=== PATIENT | male | born 1935 | race African-American/Black ===

== ENCOUNTER 2019-07-21 10:22 | Emergency (ER) | payer MEDICARE ==
[2019-07-21 11:28] LABS: #Eosinphils 0.3 thou/uL (0.0-0.7); #Lymphocytes 1.1 thou/uL (1.20-3.40); #Monocytes 0.4 thou/uL (0.11-0.59); #Neutrophils 2.8 thou/uL (1.40-6.50); %Basophils 0.2 % (0.0-1.0); %Eosinophils 6.6 % (0.0-10.0); %Lymphocytes 23.9 % (21.0-51.0); %Monocytes 9.1 % (0.0-10.0); %Neutrophils 60.2 % (42.0-75.0); Hemoglobin 14.2 g/dL (14.0-18.0); Mean Corpuscular HGB CONC 33.7 g/dL (32.0-36.0); Mean Corpuscular Hemoglobin 34.8 pg (27.0-31.0); Platelet Count 229 thou/uL (130-400); RBC Distribution Width 12.7 % (11.5-14.5); Red Blood Cell (RBC) Count 4.08 mill/uL (4.70-6.10); White Blood Cell (WBC) Count 4.6 thou/uL (4.8-10.8)
--- NOTE | 2019-07-21 11:52 | RAD ---
RADIOGRAPH RIGHT ANKLE 3 VIEWS: DATE: 07/21/2019 HISTORY: 84-year-old male with erythema, swelling, and purulent drainage from left ankle FINDINGS: Ankle mortise is congruent. There is no evidence of fracture. There is no subluxation or dislocation. There is diffuse soft tissue edema. No high-grade DJD. Ankle mortise joint space is maintained without obvious erosion. No obvious destructive osseous lesion. Talar dome is maintained. IMPRESSION: 1. No fracture. 2. Diffuse soft tissue edema.
[2019-07-21 12:03] LABS: ALT (SGPT) 12 U/L (8-55); AST (SGOT) 23 U/L (5-34); Albumin 3.8 g/dL (3.4-4.8); Alkaline Phosphatase 85 U/L (40-110); Anion Gap 11 mmol/L (10-20); BUN (Urea Nitrogen) 11 mg/dL (8.4-25.7); Bilirubin, Total 0.7 mg/dL (0.2-1.2); Calc. Creatinine Clearance 0 mL/min (70-130); Calcium 9.3 mg/dL (7.8-10.44); Carbon Dioxide 27 mmol/L (23-31); Chloride 104 mmol/L (98-107); Estimated GFR-MDRD 71; Globulin 3.9 g/dL (2.4-3.5); Glucose 113 mg/dL (83-110); Potassium 3.3 mmol/L (3.5-5.1); Protein, Total 7.7 g/dL (5.8-8.1); Sodium 139 mmol/L (136-145)
== END 2019-07-21 13:12 | disposition home or self-care (01) ==
LOC: ERS 10:22
DX: L03.116 Cellulitis of left lower limb (principal); E78.5 Hyperlipidemia, unspecified; E78.00 Pure hypercholesterolemia, unspecified; I10 Essential (primary) hypertension; F17.210 Nicotine dependence, cigarettes, uncomplicated; Z79.899 Other long term (current) drug therapy; Z79.82 Long term (current) use of aspirin
CPT/HCPCS: 36415; 80053; 85025

== ENCOUNTER 2019-08-01 13:30 | Outpatient (CLI) | payer MEDICARE ==
--- NOTE | 2019-08-04 16:57 | OP ---
DATE OF PROCEDURE: 08/01/2019 PROCEDURE PERFORMED: Arterial ultrasound. FINDINGS: Bilateral segmental ultrasound examination of the legs were performed. On the right, common femoral, popliteal, posterior tibial, and dorsalis pedis waveforms were all triphasic with good peaks. On the left, common femoral, popliteal, posterior tibial, and dorsalis pedis waveforms are all triphasic with good peaks. Ankle-brachial index on the right is 1.19 and on the left is 1.11. ASSESSMENT: Normal arterial lower extremity Doppler examination. Job ID: [id number]
== END 2019-08-01 13:31 | disposition home or self-care (01) ==
LOC: ULT 13:30
PROVIDERS: ATTEND Specialist
DX: I73.9 Peripheral vascular disease, unspecified (principal)
CPT/HCPCS: 93922

== ENCOUNTER 2019-11-10 15:58 | Inpatient (IN) | payer MEDICARE, OTHER ==
[~2019-11-10 15:58] MED LIST: Heparin 1,000 UNITS/ML VIAL ONE
[2019-11-10] MEDS ORDERED: Doxycycline 100 MG CAP PO SCH (16:45)
[2019-11-10 17:15] LABS: Hemoglobin 13.3 g/dL (14.0-18.0); Mean Corpuscular HGB CONC 31.6 g/dL (32.0-36.0); Mean Corpuscular Hemoglobin 33.3 pg (27.0-31.0); Mean Platelet Volume 9.1 fL (7.4-10.4); Platelet Count 184 thou/uL (130-400); RBC Distribution Width 12.5 % (11.5-14.5)
[2019-11-10] MEDS ORDERED: cefTRIAXone\\ROCEPHIN 2 GM VIAL ONE (17:28)
--- NOTE | 2019-11-10 17:30 | RAD ---
XR Chest 1 View Portable HISTORY: Infection. Venous stasis wounds on left lower extremity COMPARISON: 04/08/2012 FINDINGS: The heart size is normal. The lungs are without lobar consolidation, pneumothorax or pleura l effusions. Minimal atelectatic changes are seen at the left lung base.. IMPRESSION: No radiographic evidence of acute cardiopulmonary process.
[2019-11-10 17:32] LABS: ALT (SGPT) 14 U/L (8-55); AST (SGOT) 19 U/L (5-34); Albumin 3.8 g/dL (3.4-4.8); Alkaline Phosphatase 98 U/L (40-110); Anion Gap 10 mmol/L (10-20); BUN (Urea Nitrogen) 12 mg/dL (8.4-25.7); Bilirubin, Total 0.5 mg/dL (0.2-1.2); Calc. Creatinine Clearance 0 mL/min (70-130); Carbon Dioxide 29 mmol/L (23-31); Chloride 105 mmol/L (98-107); Estimated GFR-MDRD 84; Globulin 3.7 g/dL (2.4-3.5); Glucose 109 mg/dL (83-110); Potassium 3.4 mmol/L (3.5-5.1); Protein, Total 7.5 g/dL (5.8-8.1); Sodium 141 mmol/L (136-145)
[2019-11-10 17:38] LABS: Eosinophils 5 % (0-10); Large Platelets SLIGHT; Lymphocytes 23 % (21-51); MDiff Complete? YES; Macrocytosis SLIGHT = 6-15 cells (100X) (0-5/hpf); Monocytes 10 % (0-10); Neutrophil 56 % (42-75); Platelet Morphology Comment Appears Adequate; Reactive Lymphocytes 6 % (0-10); Stomatocytes SLIGHT = 2-5 cells (100X) (0-1/hpf)
[2019-11-10] MEDS ORDERED: Vancomycin HCl 1.25 GM in Sodium Chloride 0.9% 250 ML 250 ML IVPB SCH (17:45)
--- NOTE | 2019-11-10 18:00 | ULT ---
EXAM: Bilateral lower extremity venous Doppler US HISTORY: bilateral lower extremity edema and redness FINDINGS: Grayscale, color-flow, Doppler evaluation, spectral analysis of the bilateral lower extremities venou s structures is performed with 2-D imaging. The bilateral common femoral, superficial femoral, popliteal, posterior tibial, proximal greater saphenous and profunda femoral veins are imaged. Exam is limited due to interference artifact. There is normal luminal compressibility, flow, and augmentation in the visualized deep venous structu res of the bilateral lower extremities. IMPRESSION: No definite evidence of a deep vein thrombosis in either lower extremity.
[2019-11-10 18:13] LABS: Bilirubin Negative (Negative); Blood, Urine Negative (Negative); Clarity Clear (Clear); Glucose, Urine (Dipstick) Normal (Negative); Ketone, Urine Negative (Negative); Leukocyte Negative Leu/uL (Negative); Nitrite Negative (Negative); Protein, Urine (Dipstick) Negative (Neg-Trace); Specific Gravity, Urine 1.015 (1.002-1.036); Urobilinogen Normal mg/dL (Less than 2); pH, Urine 6.5 (5.0-9.0)
--- NOTE | 2019-11-10 18:23 | RAD ---
LEFT LEG 2 VIEWS: HISTORY: Cellulitis FINDINGS: There are postop changes of total knee arthroplasty in good position and alignment. The left tibia an d fibula are otherwise intact. No bony destruction, or periosteal reaction is seen. IMPRESSION: No evidence of osteomyelitis in the left leg
[2019-11-10 22:33] VITALS: BMI 34.2
[2019-11-11] MEDS ORDERED: Ondansetron PF 4 MG/2 ML Vial IVP PRN (08:24)
[2019-11-11] MEDS ORDERED: Acetaminophen 325 MG TAB PO PRN (08:24)
[2019-11-11] MEDS ORDERED: Adacel (T-DAP) 0.5 ML SYRINGE IM ONE (08:30)
[2019-11-11] MEDS: Aspirin Chewable 81 MG TAB PO SCH (08:54)
[2019-11-11] MEDS: Potassium Chloride 10 MEQ TAB PO SCH ×2 (08:55→19:52)
[2019-11-11] MEDS: Metoprolol Tartrate 50 MG TAB PO SCH ×2 (08:56→19:52)
[2019-11-11] MEDS: Cefepime 2 GM in Sodium Chloride 0.9% 100 ML IVPB SCH ×2 (08:56→19:56)
[2019-11-11] MEDS: Nicotine 21 MG PATCH TOP SCH (08:56)
[2019-11-11] MEDS: Hydrochlorothiazide 25 MG TAB PO SCH (08:56)
[2019-11-11] MEDS ORDERED: cloNIDine 0.1 MG TAB PO SCH (09:00)
[2019-11-11] MEDS ORDERED: Lisinopril 20 MG TAB PO SCH (09:00)
[2019-11-11] MEDS: Vancomycin 1.5 GRAM/300 ML BAG 1.5 GM in Premix Bag 1 BAG IVPB SCH ×2 (12:02→21:45)
--- NOTE | 2019-11-11 13:04 | HP ---
CHIEF COMPLAINT ON ADMISSION: Cellulitis of the lower extremities. HISTORY OF PRESENT ILLNESS: The patient is an 84-year-old male, who was receiving home health care for venous insufficiency in both his legs and chronic venous stasis wounds. It was noted that there was increased warmth and redness on the day of admission. Dr. Lorenzo was contacted by [facility] and Dr. Lorenzo recommended ER evaluation to see if cellulitis was present. It was noted that there was swelling in the ER, the right over the left. However, both lower extremities were hot to touch, mildly tender. The patient denied any fever, shortness of breath, or Homans' sign. However, he clinically had infection in the skin of both legs and since he had already been receiving home health care, he had failed outpatient treatment. He has had cellulitis before in the lower extremities. PAST MEDICAL HISTORY: Significant for peripheral vascular disease, dyslipidemia, hypertension, overactive bladder, and hypokalemia. PAST SURGICAL HISTORY: Includes bilateral knee surgeries. PSYCHIATRIC HISTORY: Negative. SOCIAL HISTORY: He drinks rarely socially. Denies any illicit drug use. Uses tobacco daily and has for 30 years, smoking 1-1/2 packs per day. REVIEW OF SYSTEMS: CONSTITUTIONAL: Negative for fever, malaise, nausea, vomiting, or diarrhea. HEENT: Negative for drainage or pain in eyes, ears, nose, or throat. CHEST: Denies shortness of breath or cough. CARDIOVASCULAR: Denies palpitations or chest pain. GASTROINTESTINAL: Denies nausea, vomiting, or diarrhea. GENITOURINARY: Denies dysuria, blood in urine or stool or frequency or dysuria. MUSCULOSKELETAL: Positive for chronic lower extremity venous stasis changes with ulcerations. No hair growth and most recently swelling, heat, and tenderness. SKIN: Shows atrophic changes of long-term chronic venous stasis in the lower extremities. NEUROLOGIC: Cranial nerves are intact. Unable to test gait and cerebellar function at this time. Sensory exam is grossly intact. Mental status is at baseline. ALLERGIES: THE PATIENT HAS NO KNOWN DRUG ALLERGIES. MEDICATIONS ON ADMISSION: Include; 1. Metoprolol tartrate 50 mg b.i.d. 2. Atorvastatin 10 mg at bedtime. 3. Myrbetriq 50 mg daily. 4. Lisinopril/hydrochlorothiazide 20/25 b.i.d. 5. Aspirin 81 mg daily. 6. Trental 400 mg t.i.d. 7. Clonidine 0.2 mg once a day. PHYSICAL EXAMINATION: VITAL SIGNS: At the time of admission, blood pressure is 175/74, temperature 97.8, pulse is 89, respirations 20, and O2 saturation 97% on room air. He weighs 212 pounds. GENERAL: This is a well-developed, well-nourished, male, alert, oriented, cooperative. HEENT: Normocephalic, atraumatic. Pupils with arcus senilis bilaterally, equal, round, and reactive to light, diminished reactivity at 2 mm each. TMs, nares, and pharynx are clear. Membranes moist. NECK: Supple. No masses. No bruits. CHEST: Clear to auscultation. HEART: Regular rate and rhythm without murmur. ABDOMEN: Soft, nontender without organomegaly. GENITOURINARY: Deferred. EXTREMITIES: Bilaterally from the knees down, there is erythema, heat, redness, swelling, mildly tender; it is more anterior area of the anterior tibialis and ran into the calf, peripherally to the ankle and foot it is less. SKIN: Shows atrophic changes from long-term venous stasis disease. Currently, no oozing lesions. NEUROLOGIC: Cranial nerves are intact. Unable to test gait and cerebellar function at this time. Sensory exam is grossly intact. LABORATORY DATA: Lab work thus far shows sodium 141, potassium 3.4, chloride 105, CO2 of 29, BUN 12, creatinine 1.03 with a GFR of 84, and glucose 109. Liver functions unremarkable. Troponins negative. BNP 35. WBCs 4, hemoglobin 13.3, hematocrit 42, and platelets of 184. Urinalysis is completely clear. ASSESSMENT: 1. Cellulitis of the lower extremities. 2. Chronic venous stasis disease. 3. Peripheral vascular disease, long history. 4. Hypertension. 5. Dyslipidemia. PLAN: Continue IV antibiotics. Serially re-evaluate the patient. Continue routine medications. Job ID: [id number] [facility]
[2019-11-11 15:03] LABS: SARS-CoV-2 MS2 Positive; SARS-CoV-2 N Gene Negative; SARS-CoV-2 S Gene Negative; SARS-CoV-2 by NAA Not Detected (NotDetected); SARS-CoV-2 orf1ab Negative
[2019-11-11] MEDS: cloNIDine 0.2 MG TAB PO SCH (19:50)
[2019-11-11] MEDS: Lisinopril 20 MG TAB PO SCH (19:51)
[2019-11-11] MEDS: Atorvastatin Calcium 10 MG TAB PO SCH (19:52)
[2019-11-12 06:12] LABS: #Eosinphils 0.3 thou/uL (0.0-0.7); #Monocytes 0.5 thou/uL (0.11-0.59); #Neutrophils 2.9 thou/uL (1.40-6.50); %Basophils 0.3 % (0.0-1.0); %Eosinophils 6.7 % (0.0-10.0); %Lymphocytes 21.3 % (21.0-51.0); %Monocytes 9.7 % (0.0-10.0); %Neutrophils 62.1 % (42.0-75.0); Hemoglobin 13.2 g/dL (14.0-18.0); Mean Corpuscular HGB CONC 32.5 g/dL (32.0-36.0); Mean Corpuscular Hemoglobin 33.7 pg (27.0-31.0); Mean Platelet Volume 9.2 fL (7.4-10.4); Platelet Count 252 thou/uL (130-400); RBC Distribution Width 12.6 % (11.5-14.5); Red Blood Cell (RBC) Count 3.91 mill/uL (4.70-6.10); White Blood Cell (WBC) Count 4.7 thou/uL (4.8-10.8)
[2019-11-12 06:38] LABS: Anion Gap 12 mmol/L (10-20); BUN (Urea Nitrogen) 9 mg/dL (8.4-25.7); Calc. Creatinine Clearance 85 mL/min (70-130); Calcium 8.8 mg/dL (7.8-10.44); Carbon Dioxide 27 mmol/L (23-31); Cardiac Risk 2.5 (Less than 4.5); Chloride 105 mmol/L (98-107); Cholesterol 134 mg/dl (< 200 Desired); Estimated GFR-MDRD Greater than 90; Glucose 105 mg/dL (83-110); HDL Cholesterol 54 mg/dL (>60 Neg Risk); LDL Cholesterol, Calculated 67 mg/dL; Potassium 3.2 mmol/L (3.5-5.1); Sodium 141 mmol/L (136-145); Triglycerides 63 mg/dL (Less than 150)
[2019-11-12] MEDS: Cefepime 2 GM in Sodium Chloride 0.9% 100 ML IVPB SCH ×2 (08:04→20:31)
[2019-11-12] MEDS: Potassium Chloride 10 MEQ TAB PO SCH (08:05)
[2019-11-12] MEDS: Aspirin Chewable 81 MG TAB PO SCH (08:05)
[2019-11-12] MEDS: Lisinopril 20 MG TAB PO SCH ×2 (08:05→20:30)
[2019-11-12] MEDS: cloNIDine 0.2 MG TAB PO SCH ×2 (08:05→20:30)
[2019-11-12] MEDS: Metoprolol Tartrate 50 MG TAB PO SCH ×2 (08:05→20:39)
[2019-11-12] MEDS: Hydrochlorothiazide 25 MG TAB PO SCH (08:05)
[2019-11-12] MEDS: Nicotine 21 MG PATCH TOP SCH (08:12)
[2019-11-12 09:23] LABS: Vancomycin, Trough 17.5 ug/mL
[2019-11-12] MEDS: Vancomycin 1.5 GRAM/300 ML BAG 1.5 GM in Premix Bag 1 BAG IVPB SCH ×2 (09:54→21:30)
[2019-11-12] MEDS ORDERED: Potassium Chloride 20 MEQ TAB PO SCH (10:00)
[2019-11-12] MEDS: Atorvastatin Calcium 10 MG TAB PO SCH (20:30)
[2019-11-12] MEDS: Potassium Chloride 20 MEQ TAB PO SCH (20:31)
[2019-11-13 05:52] LABS: #Eosinphils 0.3 thou/uL (0.0-0.7); #Monocytes 0.6 thou/uL (0.11-0.59); #Neutrophils 2.4 thou/uL (1.40-6.50); %Basophils 0.6 % (0.0-1.0); %Eosinophils 8.2 % (0.0-10.0); %Lymphocytes 22.9 % (21.0-51.0); %Monocytes 12.9 % (0.0-10.0); %Neutrophils 55.4 % (42.0-75.0); Hemoglobin 12.5 g/dL (14.0-18.0); Mean Corpuscular HGB CONC 31.6 g/dL (32.0-36.0); Mean Corpuscular Hemoglobin 32.9 pg (27.0-31.0); Mean Platelet Volume 9.2 fL (7.4-10.4); Platelet Count 239 thou/uL (130-400); RBC Distribution Width 12.5 % (11.5-14.5); Red Blood Cell (RBC) Count 3.81 mill/uL (4.70-6.10); White Blood Cell (WBC) Count 4.2 thou/uL (4.8-10.8)
[2019-11-13 06:15] LABS: Anion Gap 12 mmol/L (10-20); BUN (Urea Nitrogen) 10 mg/dL (8.4-25.7); Calc. Creatinine Clearance 80 mL/min (70-130); Calcium 8.9 mg/dL (7.8-10.44); Carbon Dioxide 24 mmol/L (23-31); Chloride 107 mmol/L (98-107); Estimated GFR-MDRD 90; Glucose 104 mg/dL (83-110); Potassium 3.4 mmol/L (3.5-5.1); Sodium 140 mmol/L (136-145)
[2019-11-13] MEDS: Lisinopril 20 MG TAB PO SCH ×2 (08:00→20:01)
[2019-11-13] MEDS: Cefepime 2 GM in Sodium Chloride 0.9% 100 ML IVPB SCH ×2 (08:00→20:02)
[2019-11-13] MEDS: Aspirin Chewable 81 MG TAB PO SCH (08:01)
[2019-11-13] MEDS: cloNIDine 0.2 MG TAB PO SCH (08:01)
[2019-11-13] MEDS: Metoprolol Tartrate 50 MG TAB PO SCH ×2 (08:01→20:02)
[2019-11-13] MEDS: Hydrochlorothiazide 25 MG TAB PO SCH (08:01)
[2019-11-13] MEDS: Potassium Chloride 20 MEQ TAB PO SCH ×2 (08:01→20:02)
[2019-11-13] MEDS: Nicotine 21 MG PATCH TOP SCH (08:07)
[2019-11-13] MEDS: Vancomycin 1.5 GRAM/300 ML BAG 1.5 GM in Premix Bag 1 BAG IVPB SCH ×2 (09:24→22:21)
[2019-11-13] MEDS: cloNIDine 0.3 MG TAB PO SCH ×2 (09:54→20:01)
--- NOTE | 2019-11-13 15:12 | SPC ---
Exam: Leftupper extremity ultrasound guided PICC line HISTORY: TPN, IV antibiotics Exposure:0.9 minutes, 4855 mg/sq cm FINDINGS: Lumen: Singlelumen Trim length: 45 cm Distal tip:Right atrium Catheter flushes and aspirates without difficulty TECHNIQUE: Consent obtained to perform a left upper extremity PICC line with ultrasound guidance. Le ftarm was prepped and draped in a sterile fashion. 1% lidocaine, buffered with sodium bicarbonate was used for local anesthesia. Under ultrasound guidance, micropuncture needle was used to cannulate thebrachialvein. A 0.018 guidewire was advanced through the needle to level of the superior vena cava. Under fluoroscopy, the wire was further advanced into the inferior vena cava to document venous access. Wire was subsequently pulled back to theright atrium. Single lumen flushes and aspirates without difficulty. Patient tolerated the procedure well. No immediate or postprocedure complications IMPRESSION: Successfulleftupper surgery PICC line placement with ultrasound guidance
[2019-11-13] MEDS: Atorvastatin Calcium 10 MG TAB PO SCH (20:01)
[2019-11-14 07:36] VITALS: TEMP 97.6
--- NOTE | 2019-11-14 08:57 | CT ---
CTA ABDOMEN WITH IV CONTRAST AND 3D REFORMATTED IMAGING: Date: 11/14/2019 INDICATION: History of renal artery stenosis. FINDINGS: No hemodynamically significant stenosis is seen involving the primary renal arteries bilaterally. No duplicated renal artery is evident. There are mild vascular calcifications involving the abdominal ao rta and renal arteries. No aneurysmal dilatation is evident. The SMA and celiac arteries are widely p atent. There is nonspecific subsegmental volume loss within both lower lobes. There is a 4.0 mm x 11.0 mm arterially enhancing lesion seen within segment Page of the left hepatic l obe on image 28 of series 2. The right adrenal gland, pancreas, and spleen appear within normal limits. There are bilateral renal cysts. The largest cyst is seen within the inferior pole of the left kidney measuring 5.8 cm. The largest in the right kidney is seen, measuring 4.7 cm within the superior pole . There is a 1.9 cm nodule in the left adrenal gland that cannot be further characterized. No free fluid or enlarged lymph nodes are evident. There is a moderate amount of retained stool within the visualized colon. The visualized small bowel is of normal caliber. No free fluid or free air is evident. There is scattered degenerative and osteo arthritic change. IMPRESSION: 1. No hemodynamically significant stenosis of the renal arteries. 2. Arterially enhancing lesion in the left hepatic lobe is incompletely characterized. A follow-up C T of the abdomen utilizing hemangioma protocol is recommended. 3. Bilateral renal cysts. 4. Left adrenal nodule. An additional 10 minute delayed image set can be obtained with the multiphas e CT examination of the liver to further characterize this left adrenal lesion. 5. Moderate amount of retained stool within the colon. POS: OFF
[2019-11-14] MEDS: Cefepime 2 GM in Sodium Chloride 0.9% 100 ML IVPB SCH (09:04)
[2019-11-14] MEDS: cloNIDine 0.3 MG TAB PO SCH (09:05)
[2019-11-14] MEDS: Aspirin Chewable 81 MG TAB PO SCH (09:06)
[2019-11-14] MEDS: Hydrochlorothiazide 25 MG TAB PO SCH (09:06)
[2019-11-14] MEDS: Lisinopril 20 MG TAB PO SCH (09:06)
[2019-11-14] MEDS: Nicotine 21 MG PATCH TOP SCH (09:06)
[2019-11-14] MEDS: Potassium Chloride 20 MEQ TAB PO SCH (09:06)
[2019-11-14] MEDS: Metoprolol Tartrate 50 MG TAB PO SCH (09:06)
[2019-11-14] MEDS: Vancomycin 1.5 GRAM/300 ML BAG 1.5 GM in Premix Bag 1 BAG IVPB SCH (09:07)
[2019-11-14 11:03] VITALS: BP 151/72
[2019-11-14] MEDS ORDERED: Iopamidol-370 76% 500 ML 1 ML ONE (13:16)
== END 2019-11-14 13:45 | disposition home or self-care (01) | DRG 603 ==
LOC: ERS 15:58 → T4-A 20:01
PROVIDERS: ADMIT Specialist; ATTEND Specialist
PROC: 02H633Z Insertion of Infusion Device into Right Atrium, Percutaneous Approach (ICD-10-PCS; principal; 2019-11-13)
PROC: B548ZZA Ultrasonography of Superior Vena Cava, Guidance (ICD-10-PCS; 2019-11-13)
DX: L03.116 Cellulitis of left lower limb (principal); Z20.828 Contact with and (suspected) exposure to other viral communicable diseases; L03.115 Cellulitis of right lower limb; I87.2 Venous insufficiency (chronic) (peripheral); I87.8 Other specified disorders of veins; E78.5 Hyperlipidemia, unspecified; I73.9 Peripheral vascular disease, unspecified; I10 Essential (primary) hypertension; N32.81 Overactive bladder; F17.210 Nicotine dependence, cigarettes, uncomplicated; Z79.82 Long term (current) use of aspirin
CPT/HCPCS: 36415; 36569; 71045; 74175; 80048; 80053; 80061; 80202; 81003; 83605; 83880; 84443; 84484; 85025; 87040; 87086; 87635; 93005; 93970; C1751; J0692; J0696; J3370; J3490; J7050; U0003